=== PATIENT | male | born 2000 | race Caucasian/White ===

== ENCOUNTER 2023-03-02 21:30 | Emergency (ER) | payer OTHER ==
[~2023-03-02] VITALS: Ht 162.6 cm; Wt 68.0 kg
[2023-03-02 21:57] VITALS: BP_SYST 137
[2023-03-03 00:25] VITALS: BP_SYST 112
== END 2023-03-03 00:25 | disposition home or self-care (01) ==
LOC: SED 21:30
DX: S86.001A Unspecified injury of right Achilles tendon, initial encounter (principal); X58.XXXA Exposure to other specified factors, initial encounter; Y93.66 Activity, soccer; Y92.89 Other specified places as the place of occurrence of the external cause; Y99.8 Other external cause status
CPT/HCPCS: 99283